=== PATIENT | male | born 1980 | race Caucasian/White ===

== ENCOUNTER 2017-04-11 17:55 | Emergency (ER) | payer SELFPAY ==
[2017-04-11 18:04] VITALS: BP 150/84
--- NOTE | 2017-04-11 18:34 | UC ---
Abdominal Pain Male HPI - HPI Summary HPI Summary: 36 y/o male presents to the urgent care c/o LLQ abdominal pain and Left lower back pain since yesterday. Pain starts in the left lower back and is radiating to the front. Pain is 8/10 at times, sharp, and intermittent, it gets better by laying on the RT side. He has had 6 episodes of watery diarrhea and frequency on urination. However he has been drinking plenty of water. He has not taking anything to alleviate pain. today. Pt has had Hx of H. Pyloric in the past. But denies Hx of kidney stones, diverticulitis, gastric ulcers. Pt denies fever, N/ V, chest pain, - History of Current Complaint Chief Complaint: UCGI Stated Complaint: STOMACH PAIN Time Seen by Provider: 04/11/17 18:15 Hx Obtained From: Patient Onset/Duration: Sudden Onset Timing: Intermittent Episodes Lasting: - 1min and then every 10 min Severity Initially: Mild Severity Currently: Severe Pain Intensity: 8 Pain Scale Used: 0-10 Numeric Location: Other - left lower back pain Radiates: Yes Radiates to: LLQ - pain starts in left lower back and radiates to LLQ Character: Sharp Aggravating Factor(s): Movement Alleviating Factor(s): Rest Associated Signs And Symptoms: Positive: Urinary Symptoms - frequency on urination, Diarrhea. Negative: Fever, Constipation, Blood in Stool, Nausea - Allergies/Home Medications Allergies/Adverse Reactions: Allergies Allergy/AdvReac Type Severity Reaction Status Date / Time Erythromycin Allergy Severe Abdominal Verified 04/11/17 18:04 Pain Home Medications: Home Medications Simethicone [Gas Relief Maximum Streng] 1 tab PO DAILY 04/11/17 [History Confirmed 04/11/17] PMH/Surg Hx/FS Hx/Imm Hx Previously Healthy: Yes Cardiovascular History: Hypertension - diet control Other GI/ History: H. pyloric - Surgical History Surgical History: None - Family History Known Family History: Positive: Cardiac Disease - Social History Occupation: Employed Full-time Lives: With Family Alcohol Use: Weekly Substance Use Type: None Smoking Status (MU): Former Smoker Type: Smokeless Tobacco Amount Used/How Often: Quit over 10 years ago - Immunization History Most Recent Influenza Vaccination: no Most Recent Tetanus Shot: cannot recall Review of Systems Constitutional: Negative Skin: Negative Eyes: Negative ENT: Negative Respiratory: Negative Cardiovascular: Negative Gastrointestinal: Abdominal Pain - LLQ, Diarrhea - 6 episodes today Genitourinary: Frequency - since yesterday, Other Motor: Negative Neurovascular: Negative Musculoskeletal: Other: - Left side lower back pain Neurological: Negative Psychological: Negative Is Patient Immunocompromised?: No All Other Systems Reviewed And Are Negative: Yes Physical Exam Triage Information Reviewed: Yes Appearance: Well-Appearing, No Pain Distress, Well-Nourished Vital Signs: Initial Vital Signs Temp 99.9 F 04/11/17 17:58 Pulse 74 04/11/17 17:58 Resp 15 04/11/17 17:58 BP 150/84 04/11/17 17:58 Pulse Ox 100 04/11/17 17:58 Vital Signs Reviewed: Yes Eyes: Positive: Conjunctiva Clear - PERRLA, EOMI, fundi grossly normal ENT: Positive: Normal ENT inspection, Hearing grossly normal, Pharynx normal, TMs normal Neck: Positive: Supple, Nontender, No Lymphadenopathy Respiratory: Positive: Chest non-tender, Lungs clear, Normal breath sounds, No respiratory distress Cardiovascular: Positive: RRR, No Murmur, Pulses Normal, Brisk Capillary Refill Abdomen Description: Positive: No Organomegaly, Soft - LLQ moderate tenderness on slight palpation.. Negative: CVA Tenderness (R), CVA Tenderness (L), Distended, Guarding Bowel Sounds: Positive: Present, Hyperactive Musculoskeletal: Positive: Strength Intact, ROM Intact Neurological: Positive: Alert Psychological Exam: Normal Skin Exam: Normal Abd Pain Male Course/Dx - Course Course Of Treatment: 36 y/o male presents to the urgent care c/o LLQ abdominal pain and Left lower back pain since yesterday. Pain starts in the left lower back and is radiating to the front. Pain is 8/10 at times, sharp, and intermittent, it gets better by laying on the RT side. He has had 6 episodes of watery diarrhea and frequency on urination. However he has been drinking plenty of water. He has not taking anything to alleviate pain. today. Pt has had Hx of H. Pyloric in the past. But denies Hx of kidney stones, diverticulitis , gastric ulcers. Pt denies fever, N/V, chest pain. Hx obtained. Pt with severe LLQ abdominla pain on examination. UA ordered, result: negative. At this moment we don't have CT available. I presented Pt's case to Dr Schroeder, he evaluated the Pt and agreed Pt shoulde be sent to the ER for further managment. I called [facility] and I spoke to Monique Vallejo Provider. I presented the case and she accepted the Pt to r/o Dicerticulitis, colitis or any abdominal etilogy. Pt states his will take him to the ER by private car. Pt explained the risks of not going to the ER . Pt understood and agreed and left the clinic hemodynamically stable, A&OX3 - Differential Dx/Clinical Impression Differential Diagnosis/HQI/PQRI: Appendicitis, Diverticulitis, Gall Bladder Disease, Pancreatitis, Peptic Ulcer Disease, Renal Colic, Ureteral Stone, Urinary Tract Infection Provider Diagnoses: 1- Left lower Quadrant abdominal pain. 2- Diarrhea - Physician Notification/Consults Discussed Patient Care With: Renny Schroeder - Dr Schroeder agreed with Pt's plan of care Instructed by Provider To: Transfer - strongly go to the [facility] for further evaluation and treatment. Pt agreed and will go by private car. Discharge - Discharge Plan Condition: Stable Disposition: TRANS HIGHER LVL OF CARE FAC Discharge Disposition Comment: Pt strongly advised to go to the [facility] for further management. Patient Education Materials: Acute Abdominal Pain (ED) Referrals: Ryder Olmedo MD [Primary Care Provider] - Additional Instructions: I strongly recommend you to the ER for further evaluation and treatment to r/o diverticulitis or colitis. I already spoke to Provider Monique Goode and presents your case. They will be expecting you.
== END 2017-04-11 18:50 | disposition short-term general hospital (02) ==
LOC: UCEAST 17:55
DX: R10.32 Left lower quadrant pain (principal); R19.7 Diarrhea, unspecified; I10 Essential (primary) hypertension; Z87.19 Personal history of other diseases of the digestive system; Z87.891 Personal history of nicotine dependence; Z88.8 Allergy status to other drugs, medicaments and biological substances
CPT/HCPCS: 81003; 99212; G0463

== ENCOUNTER 2017-09-10 16:29 | Emergency (ER) | payer BC ==
[2017-09-10 17:12] VITALS: BP 148/84
--- NOTE | 2017-09-10 18:11 | UC ---
Abdominal Pain Male HPI - HPI Summary HPI Summary: Pt c/o gradual onset of epigastric pain, that worsens with food ingestion. C/o abdominal discomfort and bloating. decreased appetite, loose stools. Pt had similar episode 3 years ago and was seen by GI doctor. All tests were negative. Had abdominal CT in fall 2016. - History of Current Complaint Chief Complaint: UCAbdominalPain Stated Complaint: ABDOMINAL PAIN Time Seen by Provider: 09/10/17 17:48 Hx Obtained From: Patient Onset/Duration: Gradual Onset, Lasting Days, Still Present Timing: Constant Severity Initially: Mild Severity Currently: Moderate Pain Intensity: 5 Location: Epigastric Radiates: No Character: Burning, Colicy, Cramping, Dull Aggravating Factor(s): Food Alleviating Factor(s): Nothing Associated Signs And Symptoms: Positive: Decreased Appetite, Diarrhea - loose stools - Risk Factors Testicular Torsion: Negative - Allergies/Home Medications Allergies/Adverse Reactions: Allergies Allergy/AdvReac Type Severity Reaction Status Date / Time azithromycin Allergy Severe Stomach Verified 09/10/17 17:01 Cramps PMH/Surg Hx/FS Hx/Imm Hx Previously Healthy: Yes - Surgical History Surgical History: None - Family History Known Family History: Positive: Cardiac Disease - Social History Occupation: Employed Full-time Lives: With Family Alcohol Use: Rare Substance Use Type: Marijuana Substance Use Comment - Amount & Last Used: TODAY Smoking Status (MU): Never Smoked Tobacco Have You Smoked in the Last Year: No Review of Systems Constitutional: Negative Skin: Negative Eyes: Negative ENT: Negative Respiratory: Negative Cardiovascular: Negative Gastrointestinal: Abdominal Pain, Diarrhea Genitourinary: Negative Motor: Negative Neurovascular: Negative Musculoskeletal: Negative Neurological: Negative Psychological: Negative Is Patient Immunocompromised?: No All Other Systems Reviewed And Are Negative: Yes Physical Exam Triage Information Reviewed: Yes Appearance: Pain Distress Vital Signs: Initial Vital Signs Temp 98 F 09/10/17 17:01 Pulse 57 09/10/17 17:01 Resp 16 09/10/17 17:01 BP 148/84 09/10/17 17:01 Pulse Ox 99 09/10/17 17:01 Eye Exam: Normal ENT Exam: Normal Neck exam: Normal Respiratory Exam: Normal Cardiovascular Exam: Normal Abdomen Description: Positive: Other: - epigastric pain Bowel Sounds: Positive: Present Musculoskeletal Exam: Normal Neurological Exam: Normal Psychological Exam: Normal Skin Exam: Normal Abd Pain Male Course/Dx - Course Course Of Treatment: Pt was advised to follo wup with GI immediately or seek care at closest ER is symptoms worsen - Differential Dx/Clinical Impression Differential Diagnosis/HQI/PQRI: Diverticulitis, Gall Bladder Disease, Pancreatitis Provider Diagnoses: abdominal pain. possible: H. Pylori, GERD Discharge - Sign-Out/Discharge Documenting (check all that apply): Discharge - Discharge Plan Condition: Stable Disposition: HOME Prescriptions: Omeprazole CAP* [Prilosec CAP* 20 MG] 20 mg PO BEDTIME #20 cap Patient Education Materials: Gas and Bloating (ED), Abdominal Pain (ED) Referrals: No Primary Care Phys,NOPCP [Primary Care Provider] - Additional Instructions: Please follow up with your PCP and your GI provider as soon as possible. - Billing Disposition and Condition Condition: STABLE Disposition: HOME
== END 2017-09-10 18:21 | disposition home or self-care (01) ==
LOC: UCCORT 16:29 → MERGE 16:29 → UCCORT 18:21
DX: R10.13 Epigastric pain (principal); Z88.3 Allergy status to other anti-infective agents
CPT/HCPCS: 81003; 99202; G0463

== ENCOUNTER 2018-04-30 14:44 | Emergency (ER) | payer BC ==
[2018-04-30 15:49] VITALS: BP 138/81
--- NOTE | 2018-04-30 15:56 | UC ---
Ear Complaint HPI - History of Current Complaint Chief Complaint: UCEar Stated Complaint: RIGHT EAR CONCERN Time Seen by Provider: 04/30/18 15:44 Hx Obtained From: Patient Onset/Duration: Sudden Onset, Lasting Days Severity Initially: Mild Severity Currently: Mild Pain Intensity: 2 Associated Signs/Symptoms: Positive: Hearing Loss, URI Symptoms - Allergies/Home Medications Allergies/Adverse Reactions: Allergies Allergy/AdvReac Type Severity Reaction Status Date / Time erythromycin base Allergy Abdominal Verified 04/30/18 15:51 Pain PMH/Surg Hx/FS Hx/Imm Hx Previously Healthy: Yes - Surgical History Surgical History: Yes Surgery Procedure, Year, and Place: eye surgery 02/2018 - Family History Known Family History: Positive: None, Cardiac Disease, Other - [facility] (father) - Social History Alcohol Use: Weekly Substance Use Type: None Substance Use Comment - Amount & Last Used: TODAY Smoking Status (MU): Former Smoker Type: Smokeless Tobacco Amount Used/How Often: Quit over 10 years ago Have You Smoked in the Last Year: No - Immunization History Most Recent Influenza Vaccination: no Most Recent Tetanus Shot: cannot recall Review of Systems All Other Systems Reviewed And Are Negative: Yes Constitutional: Positive: Negative Skin: Positive: Negative Eyes: Positive: Negative ENT: Positive: Ear Ache Respiratory: Positive: Negative Cardiovascular: Positive: Negative Gastrointestinal: Positive: Negative Genitourinary: Positive: Negative Motor: Positive: Negative Neurovascular: Positive: Negative Musculoskeletal: Positive: Negative Neurological: Positive: Negative Psychological: Positive: Negative Is Patient Immunocompromised?: No Physical Exam Triage Information Reviewed: Yes Vital Signs: Initial Vital Signs Temp 98.3 F 04/30/18 15:45 Pulse 85 04/30/18 15:45 Resp 16 04/30/18 15:45 BP 138/81 04/30/18 15:45 Pulse Ox 100 04/30/18 15:45 Ear Complaint Course/Dx - Course Course Of Treatment: hx obtained, exam performed ,meds reviewed, treated for otitis media right ear - Differential Dx/Diagnosis Differential Diagnosis/HQI/PQRI: Otitis Externa, Otitis Media, Perforated TM Provider Diagnoses: otitis media right ear Discharge - Sign-Out/Discharge Documenting (check all that apply): Patient Departure All imaging exams completed and their final reports reviewed: No Studies - Discharge Plan Condition: Stable Disposition: HOME Patient Education Materials: Serous Otitis Media (ED) Referrals: Ryder Olmedo MD [Primary Care Provider] - Additional Instructions: Ear Complaint HPI - History of Current Complaint Chief Complaint: UCEar Stated Complaint: RIGHT EAR CONCERN Time Seen by Provider: 04/30/18 15:44 Hx Obtained From: Patient Onset/Duration: Sudden Onset, Lasting Days Severity Initially: Mild Severity Currently: Mild Pain Intensity: 2 Associated Signs/Symptoms: Positive: Hearing Loss, URI Symptoms - Allergies/Home Medications Allergies/Adverse Reactions: Allergies Allergy/AdvReac Type Severity Reaction Status Date / Time erythromycin base Allergy Abdominal Verified 04/30/18 15:51 Pain PMH/Surg Hx/FS Hx/Imm Hx Previously Healthy: Yes - Surgical History Surgical History: Yes Surgery Procedure, Year, and Place: eye surgery 02/2018 - Family History Known Family History: Positive: None, Cardiac Disease, Other - [facility] (father) - Social History Alcohol Use: Weekly Substance Use Type: None Substance Use Comment - Amount & Last Used: TODAY Smoking Status (MU): Former Smoker Type: Smokeless Tobacco Amount Used/How Often: Quit over 10 years ago Have You Smoked in the Last Year: No - Immunization History Most Recent Influenza Vaccination: no Most Recent Tetanus Shot: cannot recall Review of Systems All Other Systems Reviewed And Are Negative: Yes Constitutional: Positive: Negative Skin: Positive: Negative Eyes: Positive: Negative ENT: Positive: Ear Ache Respiratory: Positive: Negative Cardiovascular: Positive: Negative Gastrointestinal: Positive: Negative Genitourinary: Positive: Negative Motor: Positive: Negative Neurovascular: Positive: Negative Musculoskeletal: Positive: Negative Neurological: Positive: Negative Psychological: Positive: Negative Is Patient Immunocompromised?: No Physical Exam Triage Information Reviewed: Yes Vital Signs: Initial Vital Signs Temp 98.3 F 04/30/18 15:45 Pulse 85 04/30/18 15:45 Resp 16 04/30/18 15:45 BP 138/81 04/30/18 15:45 Pulse Ox 100 04/30/18 15:45 Ear Complaint Course/Dx - Course Course Of Treatment: hx obtained, exam performed ,meds reviewed, treated for otitis media right ear - Differential Dx/Diagnosis Differential Diagnosis/HQI/PQRI: Otitis Externa, Otitis Media, Perforated TM Provider Diagnoses: otitis media right ear Discharge - Sign-Out/Discharge Documenting (check all that apply): Patient Departure All imaging exams completed and their final reports reviewed: No Studies - Discharge Plan Condition: Stable Disposition: HOME Patient Education Materials: Serous Otitis Media (ED) Referrals: Ryder Olmedo MD [Primary Care Provider] - - Billing Disposition and Condition Condition: STABLE Disposition: Home 1. take the medication as prescribed. 2. Increase fluid intake, 3. Warm compresses to the ear and Ibuprofen - Billing Disposition and Condition Condition: STABLE Disposition: Home
== END 2018-04-30 16:17 | disposition home or self-care (01) ==
LOC: UCCORT 14:44
DX: H66.91 Otitis media, unspecified, right ear (principal); Z88.1 Allergy status to other antibiotic agents; Z87.891 Personal history of nicotine dependence
CPT/HCPCS: 99212; G0463